=== PATIENT | female | born 1945 | race Caucasian/White ===

== ENCOUNTER 2016-12-07 08:12 | Day surgery (SDC) | payer OTHER ==
--- NOTE | 2016-11-30 14:07 | HP ---
Admitting History and Physical - Primary Care Physician PCP: Jennifer Castellon - Admission Chief Complaint: right breast cancer History of Present Illness: 71 yo female was noted to have a right lateral mass on mammo which corresponded to a right 10:00 mass on US. Patient underwent an US core bx on 10/19/2016 which was positive for invasive ductal ca. ER/ME positive Her 2 negative. Patient is to undergo right breast WE with NL, SNBx possible ANDx and IORT. History Source: Patient Limitations to Obtaining History: No Limitations - Past Medical History Cardiovascular: Yes: Deep Vein Thrombosis (left DVT x 2 ( and 05/2016) Left foot superficial thrombus (10/2016)) - Past Surgical History Past Surgical History: Yes: Appendectomy (1998) Home Medications - Allergies Allergies/Adverse Reactions: Allergies Allergy/AdvReac Type Severity Reaction Status Date / Time No Known Allergies Allergy Verified 11/30/16 14:13 - Home Medications Home Medications (free text): Paxil. baby ASA Family Disease History - Family Disease History Family History: Denies Review of Systems - Review of Systems Constitutional: reports: No Symptoms Cardiovascular: reports: No Symptoms Respiratory: reports: No Symptoms Physical Examination Constitutional: Yes: Well Nourished Cardiovascular: Yes: Regular Rate and Rhythm Respiratory: Yes: WNL, CTA Bilaterally Breast(s): Yes: Other (Breast are diffusely nodular and dense without suspicious masses or adenopathy noted bilaterally.) Problem List - Problems (1) Breast cancer, right breast Code(s): C50.911 - MALIGNANT NEOPLASM OF UNSP SITE OF RIGHT FEMALE BREAST Qualifiers: Breast location: upper outer quadrant of breast Patient sex: female Qualified Code(s): C50.411 - Malignant neoplasm of upper-outer quadrant of right female breast Assessment/Plan Right breast WE with NL, snbx, possible andx and IORT
[2016-12-03 10:11] VITALS: BMI 26.5
[2016-12-07] MEDS ORDERED: LIDOCAINE HCL 1%, 10 MG/ML (20ML VIAL) ONE (13:08)
[2016-12-07] MEDS ORDERED: ISOSULFAN BLUE 10 MG/ML VIAL SQ ONE (13:08)
[2016-12-07] MEDS ORDERED: MIDAZOLAM HCL 2 MG/2 ML SINGLE DOSE VIAL ONE (13:26)
[2016-12-07] MEDS ORDERED: DEXTROSE 5%-0.45% SALINE 1,000 ML IV SCH (13:45)
[2016-12-07] MEDS ORDERED: KETOROLAC TROMETHAMINE 30 MG/1 ML VIAL IVPUSH PRN (13:50)
[2016-12-07] MEDS ORDERED: ONDANSETRON 4 MG/2 ML VIAL IVPB PRN (13:51)
[2016-12-07] MEDS ORDERED: BUPIVACAINE HCL/PF 0.5% (5MG/ML) 10 ML VIAL ONE (14:25)
[2016-12-07] MEDS ORDERED: ROCURONIUM BROMIDE 50 MG/5 ML VIAL ONE (14:42)
[2016-12-07] MEDS ORDERED: PROPOFOL 20 ML ONE (14:42)
[2016-12-07] MEDS ORDERED: LIDOCAINE HCL/PF 2% SDV 5ML VIAL ONE (14:42)
[2016-12-07] MEDS ORDERED: ONDANSETRON 4 MG/2 ML VIAL ONE ×2 (14:43→16:15)
[2016-12-07] MEDS ORDERED: ePHEDrine SULFATE 50 MG/1 ML AMPULE ONE (14:44)
[2016-12-07] MEDS ORDERED: DEXAMETHASONE SOD PHOSPHATE 4 MG/1 ML VIAL ONE ×2 (14:44→16:14)
[2016-12-07] MEDS ORDERED: NEOSTIGMINE METHYLSULFATE 0.5 MG/ML - 10 ML MDV ONE (14:51)
[2016-12-07] MEDS ORDERED: GLYCOPYRROLATE 0.2 MG/1 ML VIAL ONE ×3 (14:51→14:53)
[2016-12-07] MEDS ORDERED: PROMETHAZINE HCL 25 MG/1 ML VIAL IVPUSH PRN (15:18)
[2016-12-07] MEDS ORDERED: ONDANSETRON 4 MG/2 ML VIAL IVPUSH PRN (15:18)
[2016-12-07] MEDS ORDERED: oxyCODONE HCL 5 MG TABLET PO PRN ×2 (15:18→17:12)
[2016-12-07] MEDS ORDERED: LACTATED RINGERS SOLUTION 1,000 ML IV SCH (15:30)
[2016-12-07] MEDS ORDERED: KETOROLAC TROMETHAMINE 30 MG/1 ML VIAL ONE (16:16)
[2016-12-07 18:31] VITALS: BP 157/80; PULSE 64; TEMP 97.9
--- NOTE | 2016-12-08 10:40 | OP ---
DATE OF OPERATION: 12/07/2016 PREOPERATIVE DIAGNOSIS: Right breast cancer. POSTOPERATIVE DIAGNOSIS: Right breast cancer. PROCEDURE: Post lumpectomy, intraoperative radiotherapy for right breast cancer. ATTENDING SURGEON: Jennifer Castellon MD PRIVATE DUTY LPN/RADIATION ONCOLOGIST: Ranulfo Garduno MD ANESTHESIA: General. COMPLICATIONS: None. INDICATIONS: The patient is an 71-year-old woman who was diagnosed with an infiltrating ductal carcinoma of the right breast, upper outer quadrant. She had an excisional biopsy. She elected breast conservation and was enrolled in the Targi- study for intraoperative radiotherapy as a tumor bed boost randomized to the IORT arm and agreed to have the treatment today. DESCRIPTION OF PROCEDURE: Dr. Castellon performed right lumpectomy and sentinel node biopsy, which he has dictated. After excision of additional margins, the lumpectomy cavity was prepared and sized with a 4-cm diameter spherical applicator. The applicator was placed into the operative cavity at the 10 o'clock aspect of the right breast. The surrounding breast tissue was cinched around the applicator with a Vicryl pursestring suture. I performed an ultrasound and clinical simulation to ensure that the applicator was located within the operative bed with close apposition to the surrounding breast tissue to the surface of the applicator. Saline- soaked gauze was placed between the skin and breast tissue to maximize the separation between the applicator and the skin. The applicator was pulled away from the chest wall to reduce dose to the underlying tissues. Shielding material was placed over the breast to reduce scattered radiation. The patient received a dose of 20 Gy prescribed to 0 mm from the applicator surface with a 50KV x-ray using the Intrabeam system. Prior to treatment, the system was checked and double-checked with appropriate quality intern measures. The time required for the treatment was 27 minutes and 28 seconds at a dose rate of 0.735 Gy per minute. When the treatment was completed, a survey of the patient and the room confirmed that the Intrabeam source was off. There were no complications or unexpected interruptions. Dr. Castellon removed the radiation applicator from the patient and completed the surgery. Patient was discharged to the recovery room following the surgery. Louis [id number] cc: Jennifer Castellon MD [facility]
--- NOTE | 2016-12-08 11:15 | OP ---
DATE OF OPERATION: 12/07/2016 PREOPERATIVE DIAGNOSIS: Right breast cancer. POSTOPERATIVE DIAGNOSIS: Right breast cancer. PROCEDURE: Right mammographically localized breast conservation with complex tissue transfer and sentinel node biopsy and intraoperative radiotherapy. ANESTHESIA: General. ATTENDING SURGEON: Bryan Castellon MD SUPERVISORY AIR INTERCEPT CONTROLLER: ENEIDA Cassidy ESTIMATED BLOOD LOSS: Minimal. COMPLICATIONS: None. DESCRIPTION OF PROCEDURE: Patient was made aware of the risks and benefits of the procedure and consented. Patient was brought to the radiology suite where a needle was placed next to the indexed lesion. In addition, she was sent to Nuclear Medicine where technetium was placed next to the indexed lesion. Patient was then placed in a supine position on the operating room table, and after general anesthesia was induced, the patient was intubated. The operative site was prepped and draped in the usual sterile fashion. Waiting approximately 10 minutes with gentle manual compression, a curvilinear incision was made in the right axilla using blunt and sharp dissection. Tissues were dissected down revealing 2 blue and hot lymph nodes, which were sharply excised and submitted for permanent sectioning. Palpation of the rest of the axilla revealed no suspicious lymph nodes. Counts after excision of the nodes were less than 10% of the original background before surgery. The wound was then closed deep 2-0 Vicryl followed by a running subcuticular 4-0 Monocryl. The breast was then approached. A curvilinear incision was made next to the needle. Using electrocautery, thick skin flaps were made, and needle was withdrawn to the puncture site, and a wire through the wound. Tissues around the wire were then sharply excised and palpation of the specimen revealed no evidence of the mass. This was then submitted as deep segment with the suture at the new deep margin. Palpation of the wound revealed that the nodule was actually slightly superficial. So, an additional superficial segment was then taken, and the suture was placed at the new superficial margin. Both of these were submitted for x-ray, which confirmed the presence of the index lesion. Additional segments were taken superior, inferior, medial, lateral, with clips at the new margins. Palpation of the rest of the wound revealed no suspicious abnormalities. A 4.0-cm probe was then placed into the cavity, and the tissues cinched to the probe using a pursestring suture of No. 1 Vicryl. Skin was protected with saline-soaked gauze, and intraoperative ultrasound confirmed that the distances from the skin to the probe were greater than 1 cm. Radiopaque material was placed over the chest wall, and the patient underwent approximately 27 minutes of intraoperative radiation. The probe, gauze, and suture were then removed. Tissue flaps were made by taking the breast tissue off the pectoralis muscle and rotating into the defect, which was then closed with multiple layers in a scaffolding like fashion with 2-0 Vicryl. Skin was then closed with deep 3-0 Vicryl followed by running subcuticular 4-0 Monocryl. Steri-Strips and sterile bandages as well as a compression bra were then applied, and the patient, having tolerated the procedure well, was transferred to the recovery room in excellent condition. BRYAN CASTELLON M.D. [id number]
--- NOTE | 2016-12-09 15:23 | PATH ---
Surgical Pathology Report Patient Name: GABY ZARCO [facility]. Rec. #: [id number] /Age/Gender: 1945 (Age: 71) / F Account: [id number] Location: [facility] Taken: 12/07/2016 Received: 12/07/2016 Reported: 12/09/2016 Physicians: Jennifer Castellon M.D. Specimen(s) Received A: RIGHT AXILLARY SENTINEL NODES B: RIGHT BREAST SUPERIOR MARGIN C: RIGHT BREAST INFERIOR MARGIN D: RIGHT BREAST MEDIAL MARGIN E: RIGHT BREAST LATERAL MARGIN F: RIGHT BREAST SUPERFICIAL SEGMENT G: RIGHT BREAST DEEP SEGMENT Clinical History Invasive carcinoma Final Diagnosis A. AXILLARY SENTINEL NODES, RIGHT, EXCISION: TWO LYMPH NODES, NEGATIVE FOR METASTATIC CARCINOMA (0/2). B. BREAST, RIGHT, SUPERIOR MARGIN, EXCISION: BENIGN BREAST TISSUE. C. BREAST, RIGHT, INFERIOR MARGIN, EXCISION: FOCAL DUCTAL CARCINOMA IN SITU (DCIS), INTERMEDIATE NUCLEAR GRADE. THE NEW MARGIN (WITH CLIP) IS UNINVOLVED BY DCIS; DCIS IS AT 2 MM FROM THE CLOSEST NEW MARGIN. D. BREAST, RIGHT, MEDIAL MARGIN, EXCISION: BENIGN BREAST TISSUE. E. BREAST, RIGHT, LATERAL MARGIN, EXCISION: BENIGN BREAST TISSUE SHOWING PRIOR BIOPSY SITE CHANGES. F. BREAST, RIGHT, SUPERFICIAL SEGMENT, EXCISION: INVASIVE DUCTAL CARCINOMA, MODERATELY DIFFERENTIATED (TUBULE SCORE: 3/3, NUCLEAR GRADE: 2/3, MITOTIC SCORE: 1/3; TOTAL NATO SCORE: 6/9). INVASIVE CARCINOMA MEASURES 5 MM IN GREATEST DIMENSION, MICROSCOPICALLY. THE NEW MARGIN (WITH CLIP) IS UNINVOLVED BY CARCINOMA; CARCINOMA IS AT 2 MM FROM THE CLOSEST NEW MARGIN. NO LYMPHOVASCULAR INVASION IS IDENTIFIED. PATHOLOGIC STAGE (pTNM):pT1a pN0. SEE ALSO INVASIVE CARCINOMA CASE SUMMARY BELOW. G. BREAST, RIGHT, DEEP SEGMENT, EXCISION: BENIGN BREAST TISSUE SHOWING FIBROCYSTIC CHANGES AND FOCAL PRIOR BIOPSY SITE CHANGES. Comments Breast Invasive Carcinoma: Surgical Pathology Cancer Case Summary Based on AJCC/UICC TNM, 7th edition Procedure _X_ Excision without image-guided localization Lymph Node Sampling _X_ [place] lymph node(s) Specimen Laterality _X_ Right Tumor Size: Size of Largest Invasive Carcinoma: 5 mm Tumor Focality _X_ Single focus of invasive carcinoma Macroscopic and Microscopic Extent of Tumor Nipple _X_ Not applicable (excisions less than total mastectomy) Ductal Carcinoma In Situ (DCIS) _X_ DCIS is present _X_ as a minor component (< 25% of tumor) Histologic Type of Invasive Carcinoma : _X_ Invasive carcinoma of no special type (ductal, not otherwise specified) Histologic Grade: (Nato Histologic Score) Tubular Differentiation _X_ Score 3 Nuclear Pleomorphism _X_ Score 2 Mitotic Rate _X_ Score 1 Overall Grade _X_ Grade 2: scores of 6 or 7 (moderately differentiated) Margins _X_ Margins uninvolved by invasive carcinoma Distance from closest margin: 2 mm from final superficial margin (F) _X_ Margins uninvolved by DCIS Distance from closest margin: 2 mm from new inferior margin (C) Lymph-Vascular Invasion _X_ Not identified Lymph Nodes Total number of lymph nodes examined (sentinel and nonsentinel): 2 Number of sentinel lymph nodes examined: 0 Number of lymph nodes with macrometastases ( > 2 mm): 0 Number of lymph nodes with micrometastases (>0.2 mm to 2 mm and/or >200cells):0 Number of lymph nodes with isolated tumor cells (=0.2 mm and =200 cells): 0 Extranodal Extension _X_ Not applicable Pathologic Staging (pTNM) Primary Tumor (Invasive Carcinoma): pT1a Regional Lymph Nodes (pN): pN0 Biomarker Studies Results of ER, IA, Her2 & Ki67 studies will be reported separately in an addendum. Electronically Signed Esmer Salamanca M.D. Addendum Reported: 12/13/2016 Addendum Diagnosis Results of ER and IA studies performed on block F2 at [facility] are as follows: ER (clone [id number] mouse monoclonal antibody by [employer]): 100 % nuclear staining with strong intensity (Positive). IA (clone16 mouse monoclonal antibody by [employer]): 80 % nuclear staining with moderate to strong intensity (Positive). Results of Her2 (IHC) & Ki-67 studies performed on block F2 at [place], [place] ([id number]) are as follows: Her2 IHC (EP3 from [employer], formerly known as [id number], using [employer] Polymer Refine detection kit): 1+ (Negative). Ki-67: ~30% (Intermediate). Positive and negative controls (internal if applicable) show appropriate results. Formalin fixation and cold ischemic times are within current ASCO/CAP recommendations for ER, IA and Her2 testing. Esmer Salamanca M.D. Gross Description A. Received in formalin labeled "right axillary sentinel node," are 2 browning, irregular lymph nodes measuring 0.6 and 1.5 cm in greatest dimensions. The specimens are entirely submitted in 4 cassettes as follows: 1-one whole lymph node; 2-4-one whole quadrasected lymph node. B. Received in formalin labeled "right breast superior margin," is a 1.5 x 1.0 x 0.3 cm irregular portion of fibroadipose tissue with an undesignated clip presumably marking the new margin. The presumed new margin is inked green and the specimen is serially sectioned. The specimen is entirely submitted in one cassette. C. Received in formalin labeled "right breast inferior margin," is a 1.4 x 1.3 x 0.3 cm irregular portion of fibroadipose tissue with an undesignated clip presumably marking the new margin. The presumed new margin is inked green and the specimen is serially sectioned. The specimen is entirely submitted in one cassette. D. Received in formalin labeled "right breast medial margin," is a 1.7 x 1.0 x 0.4 cm irregular portion of fibroadipose tissue with an undesignated clip presumably marking the new margin. The presumed new margin is inked green and the specimen is serially sectioned. The specimen is entirely submitted in one cassette. E. Received in formalin labeled "right breast lateral margin," is a 1.8 x 1.1 x 0.4 cm irregular portion of fibroadipose tissue with an undesignated clip presumably marking the new margin. The presumed new margin is inked green and the specimen is serially sectioned. The specimen is entirely submitted in 2 cassettes. F. Received in formalin labeled "superficial segment right breast," is a 3.4 x 3.2 x 1.0 cm irregular portion of fibroadipose tissue with a suture marking the new margin, per the surgeon. The new margin is inked green and the specimen is serially sectioned. Sectioning reveals a 0.8 x 0.7 x 0.4 cm browning, firm mass focally abutting the new margin. There is a metallic biopsy clip identified within the mass. The specimen is entirely and sequentially submitted in 5 cassettes with the mass in cassettes 1-3. Time to formalin fixation: 1 minute Total formalin fixation time: approximately 28 hours G. Received in formalin labeled "deep segment right breast," is a 4.2 x 4.0 x 1.2 cm irregular portion of fibroadipose tissue with a suture marking the new margin, per the surgeon. The new margin is inked green and the specimen is serially sectioned. Tankroom Worker sections are submitted in 9 cassettes. 12/08/2016 [facility]/2016
== END 2016-12-07 18:52 | disposition home or self-care (01) ==
LOC: FASU 08:12
PROVIDERS: ATTEND Surgery Surgical Oncology
PROC: 0HBT0ZZ Excision of Right Breast, Open Approach (ICD-10-PCS; principal; 2016-12-07 13:30)
PROC: 07B50ZX Excision of Right Axillary Lymphatic, Open Approach, Diagnostic (ICD-10-PCS; 2016-12-07 13:30)
PROC: DMY17ZZ Contact Radiation of Right Breast (ICD-10-PCS; 2016-12-07 13:30)
DX: C50.911 Malignant neoplasm of unspecified site of right female breast (principal)
CPT/HCPCS: 19281; 78195-TC; 88307-TC; 88342-TC; 94760; A9541